=== PATIENT | male | born 1990 | race African-American/Black ===

== ENCOUNTER 2019-09-08 13:09 | Emergency (ER) | payer SELFPAY ==
--- NOTE | 2019-09-08 13:42 | ER Document Report ---
HPI - HPI Patient complains to provider of: Swollen tonsils Onset: Yesterday Onset/Duration: Sudden Quality of pain: Other - Sore Context: 29-year-old male presents to the emergency department/[facility] with swollen tonsils. Reports swelling started yesterday. Denies fever vomiting diarrhea. No known exposure to strep. Denies exposure to Covid- 19. Patient reports he is eating drinking voiding without any problems. Patient reports it does hurt to swallow meat but is swallowing without problems. Associated Symptoms: Sore throat Exacerbated by: Denies Relieved by: Denies Similar symptoms previously: No Recently seen / treated by doctor: No Past Medical History - General Information source: Patient - Social History Smoking Status: Current Some Day Smoker Cigarette use (# per day): No - cigars Occupation: [employer] Lives with: Family Family History: None Patient has suicidal ideation: No Patient has homicidal ideation: No - Medical History Medical History: Negative Surgical Hx: Negative Vertical Provider Document - CONSTITUTIONAL Agree With Documented VS: Yes Exam Limitations: No Limitations General Appearance: WD/WN, No Apparent Distress Notes: Full physical exam could not be performed due to Covidien 19 isolation protocols. Constitutional: nontoxic appearance, no acute distress Eyes: Nonicteric, extraocular movements intact, sclera clear Respiratory: Nonlabored breathing, no use of accessory muscles, no tachypnea Cardiovascular: No JVD Gastrointestinal: Abdominal not distended Musculoskeletal: Moves all extremities well Skin: Normal color Neuro: Awake alert oriented normal speech Psych: Normal mood and affect - HEENT HEENT: Atraumatic, Normocephalic, Pharyngeal Exudate, Pharyngeal Erythema - Opens mouth wide, Tonsillar hypertrophy noted, good airway, no peritonsillar abscess, clear voice, no trismus - NECK Neck: Supple - RESPIRATORY Respiratory: No Respiratory Distress - MUSCULOSKELETAL/EXTREMETIES Musculoskeletal/Extremeties: KLAUS MARIE - NEURO Level of Consciousness: Awake, Alert, Appropriate Motor/Sensory: No Motor Deficit Course - Re-evaluation Re-evalutation: 09/08/19 13:41 Patient presents with swollen tonsils. Patient does not have emergency worriesome symptoms such as difficulty breathing, shortness of breath, chest pain, pressure, confusion or cyanosis. Patient appears suitable for discharge as they are not of an advanced age, do not have any chronic medical conditions such as diabetes, CAD, immune deficiency, chronic lung disease or chronic kidney disease. Patient's vital signs are stable and patient is nontoxic in appearance. Good return precautions have been discussed with patient, patient verbalized understanding and is agreeable with discharge plan of care at this time. Testing was not completed on this patient based on the revised guidelines for testing effective August 31, 2019. 1) The patient does not work in a healthcare setting or 2) Has not had close contact with a laboratory confirmed Covid-19 patient within 14 days of symptom onset or 3) Does not meet 1 of the following. *Does not live in a healthcare setting. *Is not 65 years or older. Is not or within 2 weeks of delivery. * Is not morbidly obese with a BMI greater than or equal to 40 or 100 pounds over ideal body weight. * Does not have any of the following chronic conditions: Diabetes mellitus, immunosuppression including caused by medications or by HIV infection, pulmonary disease including asthma, cardiovascular disease, hypertensive disease, renal disease, hepatic disease, hematological disease including sickle cell disease, neurological condition that limits movement, move moderate to severe developmental delay. This patient that presented to this [facility] does not meet any of the above criteria and will not be tested for Covid-19. 09/08/19 13:59 Pt received verbal discharge instructions but unfortunately left the parking lot before receiving written instructions. 09/08/19 14:52 Strep positive. Pen-VK prescription Electronically prescribed to [facility]. Patient informed via RN. Laboratory 09/08/19 13:05 Group A Strep Rapid POSITIVE - Vital Signs Vital signs: 09/08/19 13:59 hr 94, bp 172/101, 98%, 97.4 Discharge - Discharge Clinical Impression: Swollen tonsil, Strep throat Condition: Stable Disposition: HOME, SELF-CARE Additional Instructions: *You have been evaluated for a swollen tonsils *A strep test is pending. You will receive your results today by phone. Should you need antibiotics they will be called in. If your strep test is negative a throat culture will be pending. You may be contacted in 3 to 4 days should you need antibiotics *In the meantime gargle with warm salt water and suck on throat lozenges for comfort *Do not let anyone drink/eat after you, good handwashing, practice social distancing *Follow-up with a primary care provider in 1 week for recheck *Return to the emergency department immediately for trouble swallowing, difficulty breathing, worsening condition Monitor your blood pressure. Your blood pressure was elevated today. This may be because you were anxious, in pain or because you need medication. It is important to follow up with your primary care provider for full evaluation. Prescriptions: Penicillin V Potassium [Penicillin Vk 500 mg Tablet] 500 mg PO BID #20 tablet Forms: Elevated Blood Pressure Referrals: LOCALMD,NO [Primary Care Provider] - Follow up as needed
== END 2019-09-08 15:55 | disposition home or self-care (01) ==
LOC: EDRDC 13:09
DX: J02.0 Streptococcal pharyngitis (principal); F17.290 Nicotine dependence, other tobacco product, uncomplicated
CPT/HCPCS: 87880; 99201

== ENCOUNTER 2019-10-08 13:34 | Emergency (ER) | payer SELFPAY ==
[2019-10-08 14:05] VITALS: BP 164/108
--- NOTE | 2019-10-08 15:23 | ER Document Report ---
ED General - General Chief Complaint: Other Stated Complaint: POSSIBLE COVID EXPOSURE Time Seen by Provider: 10/08/19 14:46 Primary Care Provider: CECILIA CHRISTIANSON MD [ACTIVE STAFF] - Follow up as needed (Call for follow-up appointment for elevated blood pressure.) Mode of Arrival: Ambulatory Information source: Patient Notes: 29-year-old male with no previous medical problems presents to the emergency room requesting COVID testing. Patient is currently asymptomatic. Has had no recent travel outside of the state. Has had no known COVID exposure. However he does state there are coworkers who have tested positive but he does not think that he has had any direct contact with any of them. Patient states he went to the tent to get tested but they are already closed. Denies fevers, cough, shortness of breath, no difficulty breathing. No ill contacts. No diarrhea, no abdominal pain, no loss of taste or smell. TRAVEL OUTSIDE OF THE [place] IN LAST 30 DAYS: No Past Medical History - General Information source: Patient - Social History Smoking Status: Current Every Day Smoker Frequency of alcohol use: None Drug Abuse: None Lives with: Family Family History: None Patient has homicidal ideation: No Review of Systems - Review of Systems Constitutional: No symptoms reported EENT: No symptoms reported Cardiovascular: No symptoms reported Respiratory: No symptoms reported Gastrointestinal: No symptoms reported Genitourinary: No symptoms reported Musculoskeletal: No symptoms reported Skin: No symptoms reported Hematologic/Lymphatic: No symptoms reported Neurological/Psychological: No symptoms reported -: Yes All other systems reviewed and negative Physical Exam - Vital signs Vitals: Temp Pulse Resp BP Pulse Ox 98.4 F 86 18 164/108 H 97 10/08/19 13:45 10/08/19 13:45 10/08/19 13:45 10/08/19 13:45 10/08/19 13:45 - General General appearance: Appears well, Alert In distress: None - HEENT Head: Normocephalic, Atraumatic Eyes: Normal Pupils: PERRL - Respiratory Respiratory status: No respiratory distress Chest status: Nontender Breath sounds: Normal Chest palpation: Normal - Cardiovascular Rhythm: Regular Heart sounds: Normal auscultation Murmur: No - Abdominal Inspection: Normal Distension: No distension Bowel sounds: Normal Tenderness: Nontender Organomegaly: No organomegaly - Back Back: Normal, Nontender - Neurological Neuro grossly intact: Yes Cognition: Normal Orientation: AAOx4 [place] Coma Scale Eye Opening: Spontaneous [place] Coma Scale Verbal: Oriented [place] Coma Scale Motor: Obeys Commands [place] Coma Scale Total: 15 Speech: Normal Motor strength normal: LUE, RUE, LLE, RLE Sensory: Normal - Skin Skin Temperature: Warm Skin Moisture: Dry Skin Color: Normal Course - Re-evaluation Re-evalutation: 10/08/19 15:21 Had a long discussion with patient about not meeting criteria for COVID testing. Patient is insistent on getting tested. He is aware that even if his test is negative today and he develops symptoms between now and the time that he gets his test results he could still have the COVID virus that testing him today will not clear him if he becomes symptomatic. Patient is not willing to listen, re fusing to leave until he gets tested. He is aware that he has to self quarantine until he gets his test results. He was counseled that if he does develop symptoms and his test is negative that does not mean he does not have the COVID-19 virus. Also discussed patient's elevated blood pressure on need to follow-up with primary care physician for his elevated blood pressure. Patient is asymptomatic with his elevated blood pressure. He was given strict return to the emergency room guidelines. Return for any new or worsening symptoms. All questions were answered. Patient verbalized understanding and agreed with plan of care. 10/08/19 17:28 - Vital Signs Vital signs: Temp Pulse Resp BP Pulse Ox 98.4 F 86 18 164/108 H 97 10/08/19 13:45 10/08/19 13:45 10/08/19 13:45 10/08/19 13:45 10/08/19 13:45 Discharge - Discharge Clinical Impression: Elevated blood pressure reading without diagnosis of hypertension Condition: Stable Disposition: HOME, SELF-CARE Instructions: High Blood Pressure ([facility]) Additional Instructions: You have been tested for the COVID 19 virus. You must self quarantine for the next 14 days or until you get your test results that state you are negative. Testing today does not mean that if you develop symptoms at a later time that you are negative for the COVID-19 virus. Was also recommended on the need to follow-up with a primary care physician for elevated blood pressure. Return for any new or worsening symptoms. Forms: Elevated Blood Pressure, Return to Work Referrals: CECILIA CHRISTIANSON MD [ACTIVE STAFF] - Follow up as needed (Call for follow-up appointment for elevated blood pressure.)
== END 2019-10-08 15:56 | disposition home or self-care (01) ==
LOC: ER 13:34
DX: U07.1 COVID-19 (principal); R03.0 Elevated blood-pressure reading, without diagnosis of hypertension; F17.200 Nicotine dependence, unspecified, uncomplicated
CPT/HCPCS: 87635; 99283